=== PATIENT | male | born 1995 | race Caucasian/White ===

== ENCOUNTER 2017-10-09 19:13 | Emergency (ER) | payer BC ==
[2017-10-09 19:14] VITALS: BP 147/79; PULSE 110; RESP 16; TEMP 98; O2SAT 100
--- NOTE | 2017-10-09 22:44 | PD ---
HPI Chief Complaint: Laceration/Skin Injury Time Seen by Provider: 22:27 Travel History International Travel<30 days: No Contact w/Intl Traveler<30days: No Traveled to known affect area: No History of Present Illness HPI This is a 22-year-old male who presents to the emergency department having jumped through a metal window when his friend got injured to try to help him. He scratched the front of his knee and sustained a laceration. He doesn't remember when his last tetanus shot was. 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 Normocephalic. ENT: No nasal bleeding or discharge. Moist mucous membranes MUSCULOSKELETAL: No obvious deformities. No clubbing. No cyanosis. No edema. NEUROLOGICAL: Awake and alert. No obvious cranial nerve deficits. Motor grossly within normal limits. Normal speech. PSYCHIATRIC: Appropriate mood and affect; insight and judgment normal. Data Data Last Documented VS Vital Signs Date Time Temp Pulse Resp B/P (MAP) Pulse Ox O2 Delivery O2 Flow Rate FiO2 10/09/17 19:14 98.0 110 16 147/79 (101) 100 Room Air MDM Medical Decision Making Medical Screen Exam Complete: Yes Emergency Medical Condition: Yes Differential Diagnosis Laceration, abrasion, tendon injury, nerve injury, foreign body Narrative Course This is a 22-year-old male who presents to the emergency department having sustained a 1 cm laceration to his right patella. It's very superficial. I repaired it with Steri-Strips and Dermabond. Patient tolerated the procedure well. His tetanus was updated and he was discharged. Procedures Procedure Narrative LACERATION LOCATION: Right knee LENGTH: 1 cm I applied a Steri-Strip and Dermabond over top. Patient tolerated the procedure well. Diagnosis Primary Impression: Laceration of knee Qualified Codes: S81.011A - Laceration without foreign body, right knee, initial encounter Additional Instructions: The glue film will fall off in 5-10 days. Exposure to water might make the glue fall off too soon. Call your doctor if the edges of the wound open or pull apart. Change her bandage daily. Keep the wound dry. Do not apply any ointments or creams over the film. You do not need to clean the wound. If it gets wet gently blot it dry with a soft towel. Do not soak or scrub the wound. If the wound develops increasing redness, pain, green or yellow discharge, swelling, foul odor, red streaks, or if your child develops a fever return to the emergency department. Med/Other Pt SpecificInfo: No Change to Meds Disposition: 01 DISCHARGE HOME Condition: Stable Yuliet Paredes MD Oct 09, 2017 22:44
[2017-10-09] MEDS ORDERED: TETANUS/DIPHTHERIA TOXOID ADULT 0.5 ML VIAL IM ONE (22:45)
== END 2017-10-09 23:11 | disposition home or self-care (01) ==
LOC: NEPD 19:13
DX: S81.019A Laceration without foreign body, unspecified knee, initial encounter (principal); W22.8XXA Striking against or struck by other objects, initial encounter
CPT/HCPCS: 12001; 90714; 96372